=== PATIENT | female | born 1995 | race Caucasian/White ===

== ENCOUNTER → 2018-04-17 | Outpatient (CLI) | payer BC | LOC: COL.LAB 14:03 | DX: O20.9 Hemorrhage in early pregnancy, unspecified (principal); Z3A.00 Weeks of gestation of pregnancy not specified ==

== ENCOUNTER 2018-09-09 17:12 | Outpatient (CLI) | payer BC ==
[~2018-09-09] VITALS: Ht 167.6 cm; Wt 92.7 kg
[2018-09-09 17:20] VITALS: BP 130/65; PULSE 94; TEMP 98.2
[2018-09-09] MEDS ORDERED: PRENATAL VITAMI1 TA3 PO (17:20)
--- NOTE | 2018-09-09 17:45 | NUR ---
1700: Patient ambulatory onto unit with report of lower abdominal discomfort. Patient states she was "moving stuff yesterday and I did too much". Patient reports good movement, denies vaginal bleeding or leaking of fluid. Patient denies contractions, just discomfort in lower abdomen/hips. EFMs on, VS taken. SVE closed/thick/high. Assessment completed. Unable to obtain records due to patient doctoring with in [place], office closed at this time. Patient reports as G1, 26wks. Denies or medical complications. 1728: notified of patient status, orders received. 1745: Discharge instructions given. Return precautions reviewed with patient. Questions answered. Patient ambulatory off of unit at this time.
== END 2018-09-09 17:45 | disposition home or self-care (01) ==
LOC: LDRO 17:12
DX: O99.89 Other specified diseases and conditions complicating pregnancy, childbirth and the puerperium (principal); R10.9 Unspecified abdominal pain; Z3A.26 26 weeks gestation of pregnancy

== ENCOUNTER 2018-11-14 09:34 | Outpatient (CLI) | payer BC ==
[~2018-11-14] VITALS: Ht 167.6 cm; Wt 102.3 kg
[~2018-11-14 09:34] MED LIST: PRENATAL VITAMI1 TA3 PO
--- NOTE | 2018-11-14 09:35 | NUR ---
Pt here with c/o ?SROM. Pt 36 weeks gestation, G1. Pt has had care in [place] but comes to [place] for school everyday. Pt to [facility], explained. Consent signed. Pt denies having any complications. SVE: amniotrace negative, cervix 3/high and ballotable. Pt denies having any contractions or vaginal bleeding. FHR reactive, and no contractions palpated. Pt denies having any water this AM and instructed pt on the importance of keeping well hydrated with . Pt verbalizes understanding. Pt given water and a snack at this time. Dr Carter called and notified. Orders received to dc home and pt to follow up with physician for any further concerns or questions.
[2018-11-14 09:45] VITALS: BP 131/69; PULSE 85; TEMP 98.7
[2018-11-14 10:15] VITALS: BP 131/64; PULSE 86
--- NOTE | 2018-11-14 10:25 | NUR ---
Discharge instructions given, pt verbalizes understanding. Encouraged pt rest today and continue to hydrate. Call physician if any concerns. Pt to return to hospital if any vaginal bleeding, leaking of fluid, decreased movement or contractions every 5-7 minutes apart. Pt verbalizes understanding. Pt states she is going back to school but can sit and keep her feet up. She graduates in 2 weeks and doesnt want to miss any days to prolong that. 1030:Pt to personal vehicle.
== END 2018-11-14 10:30 | disposition home or self-care (01) ==
LOC: LDRO 09:34 → LDR 09:35 → LDRO 10:30
DX: Z34.03 Encounter for supervision of normal first pregnancy, third trimester (principal); Z3A.36 36 weeks gestation of pregnancy
CPT/HCPCS: OP

== ENCOUNTER 2020-10-07 10:35 | Emergency (ER) | payer BC ==
[~2020-10-07] VITALS: Ht 167.6 cm; Wt 100.0 kg
[2020-10-07 11:09] VITALS: TEMP 98.6
[2020-10-07 11:38] LABS: BASO % 0.3 % (0.0-2.0); EOS # 0.1 (0.0-0.7); EOS % 1.1 % (0-4.0); GRAN # 6.2 (1.4-6.5); GRAN % 70.4 % (42.2-75.2); HEMATOCRIT 38.4 % (37.0-47.0); HEMOGLOBIN 13.1 g/dl (12.5-16.0); LYMPH # 1.7 (1.2-3.4); LYMPH % 19.5 % (20.0-51.0); MEAN CELL VOLUME 87 fl (80.0-100.0); MEAN CORPUSCULAR HEMOGLOBIN 30 pg (27.0-31.0); MEAN CORPUSCULAR HGB CONC 34 g/dl (33.0-37.0); MEAN PLATELET VOLUME 10.6 fl (7.4-10.4); MONO # 0.7 (0.1-0.6); MONO % 7.8 % (1.7-9.3); PLATELET COUNT 258 K/mm3 (130-400); RED BLOOD COUNT 4.41 M/mm3 (4.10-5.30); REDCELL DISTRIBUTION WIDTH-CV 13.4 % (11.5-14.5)
[2020-10-07] MEDS ORDERED: LAMICTAL 100MG100 MG PO (12:43)
[2020-10-07] MEDS ORDERED: RISPERDAL 0.5M0.5 MG PO (12:43)
[2020-10-07 13:30] VITALS: BP 128/70; PULSE 78
== END 2020-10-07 13:30 | disposition home or self-care (01) ==
LOC: COL.ER 10:35
PROVIDERS: Family Medicine
DX: O46.91 Antepartum hemorrhage, unspecified, first trimester (principal); O26.891 Other specified pregnancy related conditions, first trimester; M54.5 Low back pain; Z3A.10 10 weeks gestation of pregnancy